=== PATIENT | male | born 2000 | race Caucasian/White ===

== ENCOUNTER 2022-09-04 16:49 | Emergency (ER) | payer OTHER ==
[~2022-09-04] VITALS: Ht 180.3 cm; Wt 103.0 kg
[2022-09-04 16:50] VITALS: BP 132/58
[2022-09-04] MEDS ORDERED: BENZ200C70 PO (18:19)
[2022-09-04] MEDS ORDERED: AMOX875T2 PO (18:19)
[2022-09-04] MEDS ORDERED: FLON27.5 NARES (18:19)
== END 2022-09-04 18:51 | disposition home or self-care (01) ==
LOC: M ED 16:49
DX: J01.00 Acute maxillary sinusitis, unspecified (principal)

== ENCOUNTER → 2022-12-20 | Outpatient (CLI) | payer OTHER ==
[~2022-12-20] MED LIST: AMOX875T2 PO; BENZ200C70 PO; FLON27.5 NARES
== END ==
LOC: M PLAIMG 12:27
PROVIDERS: ATTEND Physician Assistant
DX: S83.232A Complex tear of medial meniscus, current injury, left knee, initial encounter (principal); M25.562 Pain in left knee; W18.43XA Slipping, tripping and stumbling without falling due to stepping from one level to another, initial encounter; Y93.9 Activity, unspecified; Y92.9 Unspecified place or not applicable

== ENCOUNTER 2025-03-01 08:29 | Emergency (ER) | payer OTHER ==
[~2025-03-01] VITALS: Ht 180.3 cm; Wt 98.7 kg
[2025-03-01 10:58] VITALS: BP 128/66; TEMP 97.7; O2SAT 100
== END 2025-03-01 11:00 | disposition home or self-care (01) ==
LOC: M ED 08:29
DX: M23.92 Unspecified internal derangement of left knee (principal); S83.92XA Sprain of unspecified site of left knee, initial encounter; X50.0XXA Overexertion from strenuous movement or load, initial encounter; Z79.2 Long term (current) use of antibiotics; Z79.899 Other long term (current) drug therapy; Y92.9 Unspecified place or not applicable; Y93.02 Activity, running; Y99.1 Military activity

== ENCOUNTER → 2025-03-07 | Outpatient (CLI) | payer OTHER | LOC: M PLAIMG 09:58 | PROVIDERS: ATTEND Physician Assistant | DX: S83.502A Sprain of unspecified cruciate ligament of left knee, initial encounter (principal); W18.30XA Fall on same level, unspecified, initial encounter; Y92.009 Unspecified place in unspecified non-institutional (private) residence as the place of occurrence of the external cause ==